=== PATIENT | female | born 1960 | race Caucasian/White ===

== ENCOUNTER 2020-01-20 06:32 | Day surgery (SDC) | payer OTHER ==
[2020-01-13 15:06] VITALS: BMI 20.9
--- OUTSIDE RECORDS SUMMARY | 2020-01-20 06:37 | XMS ---
:1960 Author Organization [facility] Support Name Relationship Address Phone UE Unavailable Unavailable Unavailable CORDELL MOJICA SPOUSE [address] [facility] [place] [address] CORDELL MOJICA Spouse [address] [place] [address] Re-disclosure Warning The records that you are about to access may contain information from federally- assisted alcohol or drug abuse programs. If such information is present, then the following federally mandated warning applies: This information has been disclosed to you from records protected by federal confidentiality rules (42 CFR part 2). The federal rules prohibit you from making any further disclosure of this information unless further disclosure is expressly permitted by the written consent of the person to whom it pertains or as otherwise permitted by 42 CFR part 2. A general authorization for the release of medical or other information is NOT sufficient for this purpose. The Federal rules restrict any use of the information to criminally investigate or prosecute any alcohol or drug abuse patient.The records that you are about to access may contain highly sensitive health information, the redisclosure of which is protected by Article 27-F of the [facility] Public Health law. If you continue you may haveaccess to information: Regarding HIV / AIDS; Provided by facilities licensed or operated by the [facility] Office of Mental Health; or Provided by the [facility] Office for People With Developmental Disabilities. If such information is present, then the following [facility] mandated warning applies: This information has been disclosed to you from confidential records which are protected by state law. State law prohibits you from making any further disclosure of this information without the specific written consent of the person to whom it pertains, or as otherwise permitted by law. Any unauthorized further disclosure in violation of state law may result in a fine or care home sentence or both. A general authorization for the release of medical or other information is NOT sufficient authorization for further disclosure. Insurance Providers Payer name Policy type Policy ID Covered Covered libertarian's Policy P winston / Coverage libertarian ID relationship to Cesar Inf ormation type cesar CIG[employer] [id number] SP [id number] HEALTHCARE HMO 2 C[employer] [id number] SP [id number] HEALTHCARE HMO 2 Results ID Date Data Source [id number] 01/16/2020 12:31:00 PM EDT [facility] Name Value Range Interpretation Description Data Sup porting Code Source(s) Document(s ) SARS [facility] coronavirus 2 RNA This lab was ordered by BRAYAN SOLIS and reported by [facility]. ID Date Data Source [id number] 08/30/2019 11:45:00 AM EDT [facility] Name Value Range Interpretation Description Data Sup porting Code Source(s) Document(s ) SARS [facility] CORONAVIRUS 2 RNA This lab was ordered by BRAYAN SOLIS and reported by [facility]. Procedure
[2020-01-20] MEDS ORDERED: GENTAMICIN SO4 80 MG/2 ML VIAL ONE (07:13)
[2020-01-20] MEDS ORDERED: ceFAZolin SODIUM 1 GM VIAL ONE ×2 (07:13→08:18)
[2020-01-20] MEDS ORDERED: SUCCINYLCHOLINE CHLORIDE 200 MG/10 ML SYRINGE ONE (07:50)
[2020-01-20] MEDS ORDERED: PROPOFOL 20 ML ONE ×2 (07:50)
[2020-01-20] MEDS ORDERED: fentaNYL CITRATE 250 MCG/5 ML VIAL ONE (07:50)
[2020-01-20] MEDS ORDERED: MIDAZOLAM HCL 2 MG/2 ML SINGLE DOSE VIAL ONE (07:51)
[2020-01-20] MEDS ORDERED: LIDOCAINE HCL/PF 2% SDV 5ML VIAL ONE (07:52)
[2020-01-20] MEDS ORDERED: BUPIVACAINE HCL/PF 0.5% (5MG/ML) 10 ML VIAL ONE (08:16)
[2020-01-20] MEDS ORDERED: EPHEDRINE SULFATE/0.9% NACL/PF 50 MG/10 ML SYRINGE NR ONE (08:17)
[2020-01-20] MEDS ORDERED: BUPIVACAINE LIPOSOME/PF (EXPAREL) 266 MG/20 ML VIAL ONE (08:17)
[2020-01-20] MEDS ORDERED: LIDOCAINE HCL 2% JELLY (5 ML/TUBE) ONE (08:18)
[2020-01-20] MEDS ORDERED: DEXAMETHASONE SOD PHOSPHATE 4 MG/1 ML VIAL ONE (08:18)
[2020-01-20] MEDS ORDERED: KETOROLAC TROMETHAMINE 30 MG/1 ML VIAL ONE (08:18)
[2020-01-20] MEDS ORDERED: ONDANSETRON 4 MG/2 ML VIAL ONE ×2 (08:18→10:42)
[2020-01-20] MEDS ORDERED: ceFAZolin SODIUM 1 GM VIAL IVPB ONE (08:57)
[2020-01-20] MEDS ORDERED: GENTAMICIN SO4 80 MG/2 ML VIAL IVPB ONE (08:57)
[2020-01-20] MEDS ORDERED: BACITRACIN 50,000 UNITS VIAL NR ONE (08:57)
[2020-01-20] MEDS ORDERED: BUPIVACAINE LIPOSOME/PF (EXPAREL) 266 MG/20 ML VIAL NR ONE ×3 (08:58→10:38)
[2020-01-20] MEDS ORDERED: BUPIVACAINE HCL/PF 0.5% (5MG/ML) 10 ML VIAL IJ ONE ×3 (08:58→10:38)
[2020-01-20] MEDS ORDERED: ONDANSETRON 4 MG/2 ML VIAL IVPB PRN (11:41)
[2020-01-20] MEDS ORDERED: oxyCODONE HCL 5 MG TABLET PO PRN ×2 (11:41)
[2020-01-20] MEDS ORDERED: LACTATED RINGERS SOLUTION 1,000 ML IV SCH (11:45)
[2020-01-20 13:03] VITALS: TEMP 98
[2020-01-20 14:03] VITALS: BP 104/66; PULSE 92
--- NOTE | 2020-01-20 18:02 | OP ---
PREOPERATIVE DIAGNOSIS: Left breast cancer. POSTOPERATIVE DIAGNOSIS: Left breast cancer. PROCEDURE: 1. Bilateral 2nd stage breast reconstruction with capsulectomies, removal of existing tissue expanders, replacement with permanent silicone gel breast prostheses. 2. Bilateral reconstruction of inframammary folds by repairing of capsule to periosteum of ribs bilaterally. 3. Local advancement flap reconstruction for scar deformity to left axilla. ATTENDING SURGEON: Aravind Duval MD SUPERVISOR TUBING: None. ANESTHESIA: General endotracheal anesthesia. DESCRIPTION OF PROCEDURE: Patient is marked in the holding area. It is determined the patient wants to be at least the same size that she has in her tissue expanders, which is 400 mL on each side. It is also determined that the patient had an inferior malposition of both tissue expanders, which is worse on the patient's right side. This is to be corrected. She was given a gram of Ancef preoperatively, brought to the operating room, and placed in a supine position. Position is carefully checked by surgical and anesthesia teams. She is then prepped and draped in standard surgical fashion. Time-out is called. Patient, procedure site, sides are verified. The left side is addressed first. An incision is made over the existing mastectomy scar. Dissection is then carried along the periprosthetic capsule inferiorly until an incision in the capsule can be made so the capsular incision is not directly deep to the skin incision. Through the capsulotomy, the tissue glass furnace tender is removed. The exact fill volume of the tissue glass furnace tender is assessed by aspirating the contents with a syringe through the fill port. The exact volume is 400 mL on both sides. An inferior capsulectomy is performed in order to elevate the inframammary fold 5 mm on the left side. This is performed by remaining an elliptical shape segment of capsule. The inferior free edge of the capsule is then advanced to the new free edge of the posterior capsule. Soft tissue between the superior abdominal skin and the chest wall is prepared with a series of interrupted 2-0 PDS suture. It should be noted these suture lines are injected with a mixture of 0.5% Marcaine and Exparel 50/50, a total of 15 mL is used on each side. With the inframammary fold reconstructed and the capsule repaired, 400-mL sizer is placed, which is able to be tolerated by the space. A superior pole capsulectomy is performed in order to accommodate the more superior position of the implant. With the skin tailor tacked, attention is then directed toward the contralateral side where a mirror image procedure is performed as the right side is slightly lower preoperatively than the left side. Inframammary fold is elevated an additional 5 mm so a full elevation on the right side of 1 cm. This is likewise performed by a full thickness capsulotomy on both the posterior and the anterior capsule, and a repair of the inferior free edge of the anterior capsule to the periosteum and inferior free edge of the posterior capsule. This is done with additional 2-0 PDS sutures from the soft tissue of the abdominal skin to the chest wall, and separate repair of the anterior inferior free edge of the capsule to the posterior capsule and periosteum again with [id number] 2-0 PDS sutures, 400-mL sizer is placed. Skin is tailor tacked. Patient is brought to a seated, upright position where symmetry of the position is assured. There is symmetry of the position, shape, and size bilaterally. The patient is then brought back to a supine position where the pockets are reopened, sizers are removed. The pockets are irrigated with standard triple antibiotic solution. Gloves are changed using a no-touch technique and a Land Funnel. The final implants are placed. This is an Allergan SRX-400 implant. It is placed on each side, oriented properly. The capsules are then closed with running, locking 3-0 PDS suture. The dermis is then approximated with a series of interrupted, buried, deep dermal 3-0 Monocryl suture followed by a running subcuticular 4-0 Monocryl suture. Closure is performed in the identical fashion on both sides. The left axilla, there is a scar deformity from a large axillary node dissection incision, which continued onto the anterior chest. Patient was troubled by this deformity, and prior to completing the case, this scar is excised and reoriented with an anteriorly based advancement flap. This flap is closed with a series of interrupted 4-0 Monocryl suture. In the dermis, it is rotated from anteriorly. The donor site is closed with likewise a 4-0 Monocryl buried, deep dermal suture. Skin is then closed both in the donor site and the final position with a combination of running, subcuticular 4-0 Monocryl suture and interrupted 5-0 fast-absorbing plain gut suture. Steri-Strips were applied then the dressings were applied. Dressings are applied with Steri-Strips, 4x4 gauge, ABD gauge, and a surgical bra. Patient is awoken from anesthesia having tolerated procedure well. ARAVIND DUVAL M.D. [id number]
--- NOTE | 2020-01-23 12:05 | PATH ---
Surgical Pathology Report Patient Name: SONIA MOJICA [facility]. Rec. #: [id number] /Age/Gender: 1960 (Age: 59) / F Account: [id number] Location: [facility] Taken: 01/20/2020 Received: 01/20/2020 Reported: 01/23/2020 Physicians: Jam Baldwin Specimen(s) Received A: LEFT AXILLARY SCAR B: LEFT BREAST CAPSULE C: RIGHT BREAST CAPSULE D: BILATERAL TISSUE EXPANDERS Clinical History Breast cancer Final Diagnosis A. AXILLARY SCAR, LEFT, REVISION: SKIN SHOWING SCAR AND SUTURE GRANULOMAS. B. CAPSULE, LEFT BREAST, CAPSULECTOMY: FIBROUS CAPSULE WITH MILD CHRONIC INFLAMMATION. C. CAPSULE, RIGHT BREAST, CAPSULECTOMY: FIBROUS CAPSULE SHOWING MILD ACUTE AND CHRONIC INFLAMMATION AND FOREIGN BODY GIANT CELL REACTION. D. BILATERAL TISSUE EXPANDERS, REMOVAL: TISSUE EXPANDERS, DESCRIBED (GROSS EXAMINATION ONLY). Electronically Signed Payton Smith M.D. Gross Description A. Received in formalin labeled "left axillary scar," is a 2.0 x 0.5 cm sanford, elliptical, unoriented portion of skin excised to depth of 0.3 cm. The epidermal surface displays a possible well healed scar. The specimen is serially sectioned and entirely submitted in one cassette. B. Received in formalin labeled "left breast capsule," are 2 sanford portions of fibrous tissue measuring 0.9 x 0.4 x 0.2 cm and 4.5 x 1.0 x 0.7 cm, consistent with portions of fibrous capsule. Building Maintenance Mechanic sections are submitted in one cassette. C. Received in formalin labeled "right breast capsule," are 2 sanford portions of fibrous tissue measuring 2.3 x 0.8 x 0.2 cm and 6.5 x 1.0 x 0.3 cm, consistent with portions of fibrous capsule. Building Maintenance Mechanic sections are submitted in one cassette. D. Received fresh labeled "bilateral tissue expanders," are 2 foreign bodies, consistent with breast tissue expanders. One of the expanders is clear, rubbery and deflated, measuring 11.5 x 10.0 x 1.7 cm. The other tissue systems programmer analyst is clear, rubbery, intact and contains fluid. The inflated tissue systems programmer analyst measures 11.5 x 9.0 x 6.5 cm. No soft tissue is present. Gross only. DL/01/21/2020 saudi/01/21/2020
== END 2020-01-20 13:50 | disposition home or self-care (01) ==
LOC: FASU 06:32
PROVIDERS: ATTEND Plastic Surgery
PROC: 0HPT0NZ Removal of Tissue Expander from Right Breast, Open Approach (ICD-10-PCS; 2020-01-20)
PROC: 0HRV0JZ Replacement of Bilateral Breast with Synthetic Substitute, Open Approach (ICD-10-PCS; 2020-01-20)
PROC: 0HRV07Z Replacement of Bilateral Breast with Autologous Tissue Substitute, Open Approach (ICD-10-PCS; 2020-01-20)
PROC: 0HX5XZZ Transfer Chest Skin, External Approach (ICD-10-PCS; 2020-01-20)
PROC: 0HPU0NZ Removal of Tissue Expander from Left Breast, Open Approach (ICD-10-PCS; principal; 2020-01-20 08:00)
DX: C50.912 Malignant neoplasm of unspecified site of left female breast (principal); L91.0 Hypertrophic scar; Z90.13 Acquired absence of bilateral breasts and nipples
CPT/HCPCS: 88300-TC; 88304-TC; 94760

== ENCOUNTER 2020-03-30 06:29 | Day surgery (SDC) | payer OTHER ==
[2020-03-30 07:03] VITALS: BMI 20.7
[2020-03-30] MEDS ORDERED: BACITRACIN 15 GM TUBE TOPICAL OINTMENT ONE (07:29)
[2020-03-30] MEDS ORDERED: EPINEPHrine/PF 1 MG/1 ML (1:1,000) AMPULE ONE ×2 (07:29→08:25)
[2020-03-30] MEDS ORDERED: LIDOCAINE HCL 1%, 10 MG/ML (20ML VIAL) ONE ×2 (07:29→08:25)
[2020-03-30] MEDS ORDERED: MIDAZOLAM HCL 2 MG/2 ML SINGLE DOSE VIAL ONE ×2 (07:41)
[2020-03-30] MEDS ORDERED: PROPOFOL 20 ML ONE ×3 (07:41→10:30)
[2020-03-30] MEDS ORDERED: SUCCINYLCHOLINE CHLORIDE 200 MG/10 ML SYRINGE ONE (07:41)
[2020-03-30] MEDS ORDERED: SEVOFLURANE 250 ML BTL ONE (07:42)
[2020-03-30] MEDS ORDERED: ceFAZolin SODIUM 1 GM VIAL ONE (08:23)
[2020-03-30] MEDS ORDERED: DEXAMETHASONE SOD PHOSPHATE 4 MG/1 ML VIAL ONE (08:37)
[2020-03-30] MEDS ORDERED: ONDANSETRON 4 MG/2 ML VIAL ONE ×2 (08:37→11:19)
[2020-03-30] MEDS ORDERED: GLYCOPYRROLATE 0.2 MG/1 ML VIAL ONE (09:38)
[2020-03-30] MEDS ORDERED: ePHEDrine SULFATE 50 MG/1 ML AMPULE ONE (09:39)
[2020-03-30] MEDS ORDERED: LIDOCAINE 1%/EPI 1:100000 (20 ML MULTI DOSE VIAL) ONE (10:37)
[2020-03-30] MEDS ORDERED: ONDANSETRON 4 MG/2 ML VIAL IVPB PRN (11:28)
[2020-03-30] MEDS ORDERED: oxyCODONE HCL 5 MG TABLET PO PRN ×2 (11:28)
[2020-03-30] MEDS ORDERED: LACTATED RINGERS SOLUTION 1,000 ML IV SCH ×2 (11:30→11:45)
[2020-03-30] MEDS ORDERED: ONDANSETRON 4 MG/2 ML VIAL IVPUSH PRN (11:39)
[2020-03-30] MEDS ORDERED: ACETAMINOPHEN INJECTION 100 ML IVPB ONE (12:05)
[2020-03-30] MEDS ORDERED: ACETAMINOPHEN 1000 MG/100 ML VIAL (NON FORMULARY) IVPB ONE (12:07)
[2020-03-30 13:47] VITALS: TEMP 97.9
[2020-03-30] MEDS ORDERED: oxyCODONE HCL 5 MG TABLET ONE (14:18)
[2020-03-30 15:15] VITALS: PULSE 92
[2020-03-30 15:54] VITALS: BP 112/60
== END 2020-03-30 16:05 | disposition home or self-care (01) ==
LOC: FASU 06:29
PROVIDERS: ATTEND Plastic Surgery
PROC: 0JD13ZZ Extraction of Face Subcutaneous Tissue and Fascia, Percutaneous Approach (ICD-10-PCS; 2020-03-30)
PROC: 0HBV3ZZ Excision of Bilateral Breast, Percutaneous Approach (ICD-10-PCS; principal; 2020-03-30 08:42)
DX: C50.412 Malignant neoplasm of upper-outer quadrant of left female breast (principal); L98.8 Other specified disorders of the skin and subcutaneous tissue
CPT/HCPCS: 94760; J0131